=== PATIENT | male | born 1960 | race Hispanic/Latino ===

== ENCOUNTER 2017-08-12 10:37 | Day surgery (SDC) | payer BC, OTHER ==
--- NOTE | 2017-08-04 09:33 | Anesthesia Consultation ---
Anesthesia Consult and Med Hx Date of service: 08/04/17 - Airway Anesthetic Teeth Evaluation: Good ROM Head & Neck: Adequate Mental/Hyoid Distance: Adequate Mallampati Class: Class II Intubation Access Assessment: Probably Good - Pulmonary Exam CTA: Yes - Cardiac Exam Cardiac Exam: RRR - Pre-Operative Health Status ASA Pre-Surgery Classification: ASA2 Proposed Anesthetic Plan: General - Pulmonary Hx Smoking: No Hx Sleep Apnea: No (JASON PRE SCREEN HIGH RISK) - Cardiovascular System Hx Hypertension: Yes (X 33 YRS) - Central Nervous System Hx Back Pain: Yes (CHRONIC BACK AND NOLBEROT LEG PAIN/WEAKNESS) - Endocrine Hx Insulin Dependent Diabetes: No - Other Systems Hx Cancer: No Hx Obesity: Yes (BMI 33.6)
[2017-08-04 09:38] LABS: Eosinophils % (Auto) 2.4 % (0.0-4.3); Hematocrit 43.5 % (35.5-45.6); Hemoglobin 15.2 gm/dl (11.8-15.2); Mean Corpuscular HGB Conc 35 % (32-34); Mean Corpuscular Hemoglobin 32 pg (28-32); Mean Corpuscular Volume 91 fl (84-94); Platelet Count 235 K/mm3 (140-440); Red Cell Distribution Width 13.3 % (13.2-15.2); White Blood Count 9.1 K/mm3 (4.5-11.0)
[2017-08-04 09:50] LABS: INR 0.92 (0.87-1.13)
[2017-08-04 09:51] LABS: Partial Thromboplastin Time 24.1 Sec. (24.2-36.6)
[2017-08-04 09:54] LABS: Anion Gap 19 mmol/L; BUN/Creatinine Ratio 21; Blood Urea Nitrogen 21 mg/dL (9-20); Calcium 8.9 mg/dL (8.4-10.2); Carbon Dioxide 24 mmol/L (22-30); Chloride 103.8 mmol/L (98-107); Glucose 93 mg/dL (75-100); Potassium 4.6 mmol/L (3.6-5.0); Sodium 142 mmol/L (137-145)
--- NOTE | 2017-08-12 10:29 | Short Stay Summary ---
Short Stay Documentation Date of service: 08/12/17 Narrative H&P: The patient is a 57-year-old male with greater than 2 year history of bilateral lower extremity causalgia. He previously underwent lumbar fusion at L4-5 for treatment of back pain and leg pain. Postoperatively, his back pain was improved however he developed progressively severe bilateral lower leg and foot burning pain and dysesthesias. He underwent spinal cord stimulator implantation with a paddle lead by neurosurgery in 2013. Unfortunately, the system became infected and had to be removed. Attempt was made to replace the paddle lead after infection had been effectively treated. 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 Other attempts at percutaneous lead placement trial basis of been unsuccessful in treating his severe neuropathic pain involving his feet and ankles. He has been on high dose opioid therapy with relatively poor control of his pain for the past 2 years. He underwent neural stimulation trial in February 2017, using bilateral for contact leads placed at L5. During the trial, the patient reported 60-90% pain relief and was able to markedly decrease his reliance on opioid medications. He now presents for permanent neurostimulator implantation. - History H&P: obtained from office Past Medical History: arthritis, hyperthyroidism Past Surgical History: Other (Lumbar Fusion at L4-5. Permanent spinal cord stimulator implantation.) Social history: - Allergies and Medications Current Medications: Allergies morphine Adverse Reaction (Verified 08/02/17 15:12) DRUG RESISTANCE DRUG DOES NOT WORK ON PT,REQUEST NOT TO HAVE MEDICATION Home Medications Medication Instructions Recorded Confirmed Last Taken Type Aspirin [Aspirin BABY CHEW TAB] 81 mg PO DAILY 02/05/14 08/02/17 02/11/14 History Hydrochlorothiazide 12.5 mg PO DAILY 02/05/14 08/02/17 03/03/14 History Lisinopril [Zestril TAB] 40 mg PO DAILY 02/05/14 08/02/17 03/05/14 04:30 History oxyCODONE ER [OxyCONTIN ER TAB] 30 mg PO QID 02/05/14 08/02/17 02/06/14 History 20 MG Gabapentin [Neurontin] 800 mg PO TID 08/02/17 08/02/17 Unknown History Tamsulosin [Flomax] 0.4 mg PO QDAY 08/02/17 08/02/17 Unknown History Tizanidine HCl [Zanaflex] 4 mg PO BID 08/02/17 08/02/17 Unknown History Active Medications Cefazolin Sodium (Ancef/Sterile Water 2 Gm/20 Ml) 2 gm IV PREOP NR Stop: 08/12/17 21:00 Lactated Ringer's (Lactated Ringers) 1,000 mls @ 100 mls/hr IV DIRECT CINDY - Physical exam General appearance: no acute distress Integumentary: no rash HEENT: Atraumatic, PERRLA, EOMI Lungs: Clear to auscultation Breasts: deferred Heart: Regular rate, Normal S1, Normal S2, No murmurs Gastrointestinal: normal Male Genitourinary: deferred Rectal Exam: deferred Extremities: pulses intact, normal temperature Neurological: Normal gait, Normal speech, Strength at 5/5 X4 ext, Sensation intact (Allodynia and hyperesthesia of feet bilaterally), Cranial nerves 3-12 NL , Reflexes 2+ (Patellar reflexes 2+ and equal. Achilles reflexes absent bilaterally) - Brief post op/procedure progress note Date of procedure: 08/12/17 Pre-op diagnosis: Bilateral Lower Extremity Causalgia Post-op diagnosis: same Anesthesia: GETA Estimated blood loss: other (30 ml) Pathology: none Condition: stable - Hospital course Hospital course: The patient underwent permanent Neurostimulator implantation with bilateral L5 dorsal root stimulator leads. No intraoperative complications. - Disposition Condition at discharge: Good Disposition: DC-01 TO HOME OR SELFCARE Short Stay Discharge Plan Follow up with: DIMA FLETCHER DO [Primary Care Provider] - 7 Days Forms: Outpatient Surgery DC Inst.
[~2017-08-12 10:37] MED LIST: ANCEF/STERILE WATER 2 GM/20 ML IV NR; LACTATED RINGERS 1,000 ML IV SCH; VERSED IV NR
[2017-08-12] MEDS ORDERED: MARCAINE 0.5% 30 ML INFILTRATI ONE (10:55)
[2017-08-12] MEDS ORDERED: BACITRACIN ONE (10:55)
[2017-08-12] MEDS ORDERED: VERSED IV NR (12:00)
[2017-08-12] MEDS ORDERED: DIPRIVAN 10 MG/ML IV ONE (12:27)
[2017-08-12] MEDS ORDERED: SUBLIMAZE ONE (12:27)
[2017-08-12] MEDS ORDERED: NACL BACTERIOSTATIC INFILTRATI ONE (12:29)
[2017-08-12] MEDS ORDERED: XYLOCAINE MPF 2% ONE (13:18)
[2017-08-12] MEDS ORDERED: QUELICIN ONE (13:18)
[2017-08-12] MEDS ORDERED: ePHEDrine SULFATE ONE (13:22)
[2017-08-12] MEDS ORDERED: BACITRACIN IR ONE (13:38)
[2017-08-12] MEDS ORDERED: MARCAINE 0.5% INFILTRATI ONE (13:39)
[2017-08-12] MEDS ORDERED: NACL 0.9% IR ONE (13:39)
[2017-08-12] MEDS ORDERED: NEO SYNEPHRINE ONE (13:48)
[2017-08-12] MEDS ORDERED: DILAUDID ONE ×3 (15:53→19:21)
[2017-08-12] MEDS ORDERED: ANCEF ONE (17:32)
[2017-08-12] MEDS ORDERED: LACTATED RINGERS 1,000 ML ONE (17:32)
[2017-08-12] MEDS ORDERED: ZOFRAN ONE (18:09)
[2017-08-12] MEDS ORDERED: ANTIBIOTIC OINT TP ONE (18:27)
[2017-08-12] MEDS ORDERED: DILAUDID IV PRN (19:15)
[2017-08-12] MEDS: DILAUDID IV PRN ×3 (19:20→19:52)
[2017-08-12] MEDS ORDERED: TORADOL IV PRN (19:45)
--- NOTE | 2017-08-12 19:48 | Short Stay Summary ---
Short Stay Documentation - History Past Medical History: arthritis, hyperthyroidism Past Surgical History: Other (Lumbar Fusion at L4-5. Permanent spinal cord stimulator implantation.) Social history: - Allergies and Medications Current Medications: Allergies morphine Adverse Reaction (Verified 08/02/17 15:12) DRUG RESISTANCE DRUG DOES NOT WORK ON PT,REQUEST NOT TO HAVE MEDICATION Home Medications Medication Instructions Recorded Confirmed Last Taken Type Aspirin [Aspirin BABY CHEW TAB] 81 mg PO DAILY 02/05/14 08/12/17 07/22/17 History Hydrochlorothiazide 12.5 mg PO DAILY 02/05/14 08/02/17 08/12/17 08:00 History Lisinopril [Zestril TAB] 40 mg PO DAILY 02/05/14 08/02/17 08/12/17 08:00 History oxyCODONE ER [OxyCONTIN ER TAB] 30 mg PO BID 02/05/14 08/12/17 08/12/17 02:00 History Gabapentin [Neurontin] 800 mg PO TID 08/02/17 08/12/17 08/12/17 02:00 History Tamsulosin [Flomax] 0.4 mg PO QDAY 08/02/17 08/02/17 08/12/17 02:00 History Tizanidine HCl [Zanaflex] 4 mg PO BID 08/02/17 08/12/17 08/12/17 02:00 History Oxycodone HCl [Roxicodone] 30 mg PO QID 08/12/17 08/12/17 08/12/17 02:00 History Active Medications Cefazolin Sodium (Ancef/Sterile Water 2 Gm/20 Ml) 2 gm IV PREOP NR Stop: 08/12/17 21:00 Hydromorphone HCl (Dilaudid) 0.5 mg IV Q10MIN PRN PRN Reason: Pain , Severe (7-10) Lactated Ringer's (Lactated Ringers) 1,000 mls @ 100 mls/hr IV DIRECT CINDY Last Admin: 08/12/17 12:31 Dose: 100 mls/hr Ketorolac Tromethamine (Toradol) 60 mg IV ONCE PRN PRN Reason: Pain, Moderate (4-6) Midazolam HCl (Versed) 2 mg IV PREOP NR Stop: 08/12/17 23:59 Last Admin: 08/12/17 12:42 Dose: 2 mg - Physical exam Breasts: deferred Heart: Regular rate, Normal S1, Normal S2, No murmurs Male Genitourinary: deferred Extremities: pulses intact, normal temperature - Disposition Condition at discharge: Good Disposition: DC-01 TO HOME OR SELFCARE Short Stay Discharge Plan Activity: other (15 lb lifting restriction. No forward bending more than 45 degrees. Wear back brace when up and out of bed.) Weight Bearing Status: Full Weight Bearing Diet: regular Wound: per wound nurse instructions, other Additional Instructions: FOLLOW SURGEON INSTRUCTIONS. Follow up with: DIMA FLETCHER DO [Primary Care Provider] - 7 Days (Follow-up with Dr. Mccord in 5 days ) Prescriptions: Cephalexin [Keflex] 500 mg PO Q12HR 5 Days #10 cap
--- NOTE | 2017-08-12 20:38 | Operative Report ---
Operative Report Operative Report: Preoperative diagnosis: 1. Bilateral lower extremity causalgia. 2. Postlaminectomy syndrome. 3. Bilateral chronic axial low back pain. 4. Failed neurostimulator implant. Postoperative diagnosis: 1. Same. Procedure: 1. Percutaneous insertion of dual 4 contact dorsal root ganglion stimulator leads -bilateral L5. 2. Implantation of pulse generator/tile and marble installer. 3. Explantation of nonfunctional pulse generator/tile and marble installer. 4. Programming of implanted neurostimulator system-30 minutes. Surgeon: [Ganesh Mccord] Peyton Continuity Manager: Janes Branch M.D. Anesthesia: Gen. endotracheal. Estimated blood loss: [30 mL] Complications: None. Indication: The patient is a 57-year-old male with history of previous lumbar fusion at L4-5. He developed chronic bilateral lower extremity causalgia postoperatively which is failed to respond to maximum conservative management. He is previously undergone spinal cord stimulator implantation with thoracic paddle lead. Unfortunately, he developed an infection postoperatively and the entire system required removal. Attempts at replacement were unsuccessful due to epidural fibrosis. Previously underwent neurostimulator trial with bilateral L5 dorsal root ganglion lead placement with greater than 80% pain relief. He now presents for permanent dorsal ganglion stimulator implantation. Procedure: Following informed consent, the patient was brought to the upper suite. General endotracheal anesthesia was induced without complication. Patient received 2 g of cefazolin intravenously for antimicrobial prophylaxis. The back was sterilely prepped and draped in routine fashion. Attention was initially turned to the right side the patient's back. The existing nonfunctional pulse generator/tile and marble installer was localized. A skin incision was made overlying the implant with a #15 blade. Using blunt dissection with electrocautery for hemostasis, the battery was explanted and the existing leads were transected. The wound was irrigated with antibiotic-containing solution. The incision was then closed in 2 layers with interrupted 2-0 Vicryl deep sutures and skin edges were approximated with stainless steel sriram. Attention was next turned to the sacrum on the right side initially. A 14- gauge Jack needle was advanced and oblique direction to the L5-S1 interlaminar space, to the right of midline. A preloaded curved sheath was introduced through the needle and the quad polar lead was advanced into the contralateral neural foramen within the superior aspect. The initial placement resulted and ventral nerve root stimulation. Therefore, the needle was redirected along a different trajectory into the dorsal epidural space. The sheath was then directed into the superior aspect of the left L5-S1 neural foramen. The 50 cm quad lead ([employer] Lot [id number]) was then advanced into the neural foramen and the sheath was withdrawn. An S curve was created within the dorsal epidural space for anchoring of the lead. This procedure was then repeated in identical fashion on the left side. Again using a contralateral approach, a 4 contact 50 cm lead ( [employer] Lot [id number]) was directed into the posterior aspect of the L5-S1 neural foramen on the right side. An S curve was created in the dorsal epidural space for anchoring purposes. Both leads were then checked impedances family satisfactory. 3 cm skin incision is made at both locations. Using sharp and blunt dissection, the fascia was identified. The leads were then anchored in routine fashion with 2- 0 silk sutures to the dorsal fascia. Attention was extra into the left buttock. A 5 cm transverse skin incision was made and a pocket was created using sharp and blunt dissection. The existing scar was excised. The leads were tunneled to the left buttock pocket and connected to the IPG ([employer] [id number]). Impedance found to be satisfactory. The IPG was placed within the pocket. The incision was closed in 3 layers with 2-0 Vicryl deep sutures, 3-0 Vicryl superficial subcutaneous sutures and skin edges were approximated using sriram. The 2 other incisions overlying the lead anchors were closed in 2 layers with 2-0 Vicryl deep sutures and Skin sriram. The patient was turned onto the gurney, extubated taken the recovery room where is noted. Stable cardiopulmonary neurologic condition. Programming was performed in the recovery room including impedance check, frequency, pulse width , pulse duration and pulse amplitude. There were no immediate complications. Discharge instructions were provided to the patient. Disposition: Patient discharged to home with prescription of Keflex 500 mg #10 1 by mouth twice a day. Follow-up: Return to clinic in 5 days for follow-up evaluation.
[2017-08-12 21:24] VITALS: BP 123/70
--- NOTE | 2017-08-13 09:40 | XRay Report ---
INTRAOPERATIVE FLUOROSCOPIC IMAGES OF SACRUM AND COCCYX TWO VIEWS: 08/12/17 10:37:00 CLINICAL: Postlaminectomy syndrome. Stimulator implantation. FINDINGS: AP and lateral views demonstrate placement of a neurostimulator at L5-S1. Status post posterior fusion at L4-5. For more detail, please refer to the operative report.
== END 2017-08-12 21:15 | disposition home or self-care (01) ==
LOC: OR 10:37
PROVIDERS: ATTEND Radiology Diagnostic Radiology
DX: G57.73 Causalgia of bilateral lower limbs (principal); M96.1 Postlaminectomy syndrome, not elsewhere classified; I10 Essential (primary) hypertension; E05.90 Thyrotoxicosis, unspecified without thyrotoxic crisis or storm; E66.9 Obesity, unspecified; Z68.33 Body mass index [BMI] 33.0-33.9, adult; Z79.82 Long term (current) use of aspirin; Z79.01 Long term (current) use of anticoagulants; Z88.5 Allergy status to narcotic agent; Z98.1 Arthrodesis status; T85.192A Other mechanical complication of implanted electronic neurostimulator of spinal cord electrode (lead), initial encounter
CPT/HCPCS: 36415; 63663; 63685; 72220; 80048; 85025; 85610; 85730; 93005; 93010; 95971; C1778; J0330; J0690; J1170; J1885; J2250; J2370; J2405; J2704; J3010; J7120